=== PATIENT | female | born 1995 | race Caucasian/White ===

== ENCOUNTER 2017-08-11 15:46 | Emergency (ER) | payer OTHER ==
[~2017-08-11] VITALS: Ht 157.4 cm; Wt 96.6 kg
[~2017-08-11 15:46] MED LIST: BACTRIM DS 8001 TA1 PO; CLARITIN10 MG PO; MOTRIN800 MG PO; NO DAILY MEDS; ZITHROMAX Z PA250 MG PO; ZOFRAN ODT4 MG SL; ZOFRAN4 MG PO
[2017-08-11 16:20] LABS: BASO % 0.2 % (0.0-1.0); EOS % 0.5 % (1.0-4.0); HEMATOCRIT 43.9 % (37.0-47.0); HEMOGLOBIN 14.8 g/dl (12.0-16.0); LYMPH # 1.5 10*3/uL (1.3-4.4); LYMPH % 25.9 % (27.0-41.0); MEAN CELL VOLUME 87.5 fl (81.0-99.0); MEAN CORPUSCULAR HGB 29.5 pg (27.0-31.0); MEAN CORPUSCULAR HGB CONC 33.7 g/dl (33.0-37.0); MEAN PLATELET VOLUME 10.4 fl (9.6-12.3); MONO % 0.5 % (3.0-9.0); NEUT # 4.1 10*3/uL (2.3-7.9); NEUT % 72.4 % (47.0-73.0); PLATELET COUNT AUTOMATED 216 10*3/uL (130-400); RED BLOOD COUNT 5.02 10*6/uL (4.10-5.10); RED CELL DISTRI WIDTH 13.5 % (0-14.5); WHITE BLOOD COUNT 5.6 10*3/uL (4.8-10.8)
[2017-08-11 16:37] LABS: ALBUMIN 3.6 gm/dl (3.1-4.5); ALKALINE PHOSPHATASE 120 U/L (45-117); BUN 13 mg/dl (7-24); CHLORIDE 104 mmol/L (98-107); CREATININE 0.86 mg/dL (0.55-1.02); POTASSIUM 3.6 mmol/L (3.5-5.1); SGOT/AST 26 IU/L (3-35); SGPT/ALT 30 U/L (12-78); SODIUM 140 mmol/L (136-145)
[2017-08-11 17:48] VITALS: BP 98/50
[2017-08-11] MEDS ORDERED: ZOFRAN4 MG PO (18:04)
== END 2017-08-11 18:09 | disposition home or self-care (01) ==
LOC: ED 15:46
PROVIDERS: Nurse Practitioner Family
DX: R51 Headache (principal); R03.0 Elevated blood-pressure reading, without diagnosis of hypertension

== ENCOUNTER → 2018-03-05 | Outpatient (CLI) | payer OTHER | END | disposition home or self-care (01) | LOC: ORTHO 01:58 | DX: M25.531 Pain in right wrist (principal) ==

== ENCOUNTER 2018-03-07 11:24 | Emergency (ER) | payer OTHER ==
[~2018-03-07] VITALS: Ht 157.4 cm; Wt 99.8 kg
[2018-03-07 11:30] VITALS: BP 123/66
== END 2018-03-07 12:48 | disposition home or self-care (01) ==
LOC: ED 11:24
DX: M54.9 Dorsalgia, unspecified (principal); Z98.890 Other specified postprocedural states

== ENCOUNTER 2019-02-21 10:41 | Emergency (ER) | payer OTHER ==
[~2019-02-21] VITALS: Ht 157.4 cm; Wt 99.8 kg
[2019-02-21 10:44] VITALS: BP 132/77
[2019-02-21 11:27] LABS: BASO % 0.4 % (0.0-1.0); EOS # 0.1 10*3/uL (0.0-0.4); EOS % 1.3 % (1.0-4.0); HEMATOCRIT 45.6 % (37.0-47.0); HEMOGLOBIN 14.5 g/dl (12.0-16.0); LYMPH # 2.1 10*3/uL (1.3-4.4); LYMPH % 28.4 % (27.0-41.0); MEAN CORPUSCULAR HGB 29.9 pg (27.0-31.0); MEAN CORPUSCULAR HGB CONC 31.8 g/dl (33.0-37.0); MEAN PLATELET VOLUME 10.6 fl (9.6-12.3); MONO # 0.6 10*3/uL (0.1-1.0); MONO % 8.3 % (3.0-9.0); NEUT # 4.6 10*3/uL (2.3-7.9); NEUT % 61.5 % (47.0-73.0); PLATELET COUNT AUTOMATED 267 10*3/uL (130-400); RED BLOOD COUNT 4.85 10*6/uL (4.10-5.10); RED CELL DISTRI WIDTH 12.7 % (0-14.5); WHITE BLOOD COUNT 7.5 10*3/uL (4.8-10.8)
[2019-02-21 11:39] LABS: ALBUMIN 3.3 gm/dl (3.1-4.5); BUN 9 mg/dl (7-24); CHLORIDE 106 mmol/L (98-107); CREATININE 0.81 mg/dL (0.55-1.02); POTASSIUM 4.1 mmol/L (3.5-5.1); SGOT/AST 17 IU/L (3-35); SGPT/ALT 27 U/L (12-78); SODIUM 138 mmol/L (136-145); TOTAL PROTEIN 7.8 gm/dL (6.4-8.2)
[2019-02-21 11:40] LABS: ALKALINE PHOSPHATASE 56 U/L (45-117)
[2019-02-21 11:42] LABS: B-hCG (QUALITATIVE) NEGATIVE (NEGATIVE)
[2019-02-21] MEDS ORDERED: KENALOG 0.025%15 GM T (12:22)
== END 2019-02-21 12:09 | disposition home or self-care (01) ==
LOC: ED 10:41
PROVIDERS: Physician Assistant
DX: B27.90 Infectious mononucleosis, unspecified without complication (principal)

== ENCOUNTER 2021-05-21 19:54 | Emergency (ER) | payer OTHER ==
[~2021-05-21 19:54] MED LIST changes: +KENALOG 0.025%15 GM T
[2021-05-21 20:47] LABS: BASO % 0.3 % (0.0-1.0); EOS # 0.1 10*3/uL (0.0-0.4); EOS % 0.7 % (1.0-4.0); HEMATOCRIT 43.5 % (37.0-47.0); LYMPH % 15.1 % (27.0-41.0); MEAN CELL VOLUME 88.8 fl (81.0-99.0); MEAN CORPUSCULAR HGB CONC 32.6 g/dl (33.0-37.0); MEAN PLATELET VOLUME 10.8 fl (9.6-12.3); MONO # 0.7 10*3/uL (0.1-1.0); MONO % 5.1 % (3.0-9.0); NEUT # 10.5 10*3/uL (2.3-7.9); NEUT % 78.4 % (47.0-73.0); PLATELET COUNT AUTOMATED 300 10*3/uL (130-400); RED CELL DISTRI WIDTH 13.1 % (0-14.5); WHITE BLOOD COUNT 13.3 10*3/uL (4.8-10.8)
[2021-05-21 20:55] LABS: BILIRUBIN Negative (Negative); BLOOD Negative (Negative); CLARITY Cloudy (Clear); COLOR Dark Yellow (Yellow); GLUCOSE Negative (Negative); KETONE Trace (Negative); LEUKO ESTERASE 1+ (Negative); NITRITE Negative (Negative); SPECIFIC GRAVITY 1.025 (1.001-1.030)
[2021-05-21 21:04] LABS: ALBUMIN 3.7 gm/dl (3.1-4.5); ALKALINE PHOSPHATASE 90 U/L (45-117); BUN 7 mg/dl (7-24); CHLORIDE 106 mmol/L (98-107); CREATININE 0.65 mg/dL (0.55-1.02); LIPASE 59 U/L (73-393); POTASSIUM 4.1 mmol/L (3.5-5.1); SGOT/AST 30 IU/L (3-35); SGPT/ALT 37 U/L (12-78); SODIUM 135 mmol/L (136-145); TOTAL PROTEIN 8.2 gm/dL (6.4-8.2)
[2021-05-21 21:06] LABS: B-hCG (QUALITATIVE) NEGATIVE (NEGATIVE)
[2021-05-21 21:12] LABS: BACTERIA 2+; EPITHELIAL CELLS TNTC
[2021-05-21 23:42] VITALS: BP 107/66
== END 2021-05-22 02:10 | disposition home or self-care (01) ==
LOC: ED 19:54
PROVIDERS: Physician Assistant
DX: R11.2 Nausea with vomiting, unspecified (principal); R19.7 Diarrhea, unspecified; R10.9 Unspecified abdominal pain

== ENCOUNTER 2021-07-22 05:54 | Emergency (ER) | payer OTHER ==
[~2021-07-22] VITALS: Ht 160 cm; Wt 83.5 kg
[2021-07-22 06:40] LABS: BASO # 0.1 10*3/uL (0.0-0.1); BASO % 0.4 % (0.0-1.0); EOS # 0.2 10*3/uL (0.0-0.4); EOS % 1.2 % (1.0-4.0); HEMATOCRIT 40.2 % (37.0-47.0); LYMPH % 15.7 % (27.0-41.0); MEAN CELL VOLUME 90.1 fl (81.0-99.0); MEAN CORPUSCULAR HGB 29.4 pg (27.0-31.0); MEAN CORPUSCULAR HGB CONC 32.6 g/dl (33.0-37.0); MEAN PLATELET VOLUME 10.6 fl (9.6-12.3); MONO # 1.1 10*3/uL (0.1-1.0); MONO % 8.8 % (3.0-9.0); NEUT # 9.4 10*3/uL (2.3-7.9); NEUT % 73.6 % (47.0-73.0); PLATELET COUNT AUTOMATED 284 10*3/uL (130-400); RED BLOOD COUNT 4.46 10*6/uL (4.10-5.10); RED CELL DISTRI WIDTH 12.7 % (0-14.5); WHITE BLOOD COUNT 12.8 10*3/uL (4.8-10.8)
[2021-07-22 06:49] LABS: BUN 10 mg/dl (7-24); CHLORIDE 108 mmol/L (98-107); CREATININE 0.55 mg/dL (0.55-1.02); POTASSIUM 3.9 mmol/L (3.5-5.1); SODIUM 134 mmol/L (136-145)
[2021-07-22 09:36] VITALS: BP 118/64
== END 2021-07-22 09:36 | disposition home or self-care (01) ==
LOC: ED 05:54
PROVIDERS: Internal Medicine
DX: B27.90 Infectious mononucleosis, unspecified without complication (principal); Z20.822 Contact with and (suspected) exposure to COVID-19

== ENCOUNTER → 2021-09-15 | Outpatient (CLI) | payer OTHER | END | disposition home or self-care (01) | LOC: COVID19 15:24 | PROVIDERS: ATTEND Internal Medicine | DX: Z11.52 Encounter for screening for COVID-19 (principal) ==

== ENCOUNTER 2022-03-11 12:23 | Emergency (ER) | payer OTHER ==
[~2022-03-11] VITALS: Ht 157.4 cm; Wt 113.9 kg
[2022-03-11 12:35] VITALS: BP 132/62
== END 2022-03-11 14:39 | disposition home or self-care (01) ==
LOC: ED 12:23
DX: O26.893 Other specified pregnancy related conditions, third trimester (principal); M54.50 Low back pain, unspecified; Z3A.28 28 weeks gestation of pregnancy

== ENCOUNTER → 2023-12-19 | Outpatient (CLI) | payer SELFPAY | END | disposition home or self-care (01) | LOC: RAD 16:01 | PROVIDERS: ATTEND Nurse Practitioner Family | DX: T83.32XA Displacement of intrauterine contraceptive device, initial encounter (principal); Y62.9 Failure of sterile precautions during unspecified surgical and medical care ==

== ENCOUNTER → 2025-01-20 | Outpatient (CLI) | payer OTHER | END | disposition home or self-care (01) | LOC: US 16:00 | PROVIDERS: ATTEND Nurse Practitioner Women's Health | DX: N83.292 Other ovarian cyst, left side (principal); N92.6 Irregular menstruation, unspecified ==

== ENCOUNTER → 2025-03-12 | Outpatient (CLI) | payer OTHER | END | disposition home or self-care (01) | LOC: US 14:25 | PROVIDERS: ATTEND Nurse Practitioner Women's Health | DX: N83.202 Unspecified ovarian cyst, left side (principal); R10.2 Pelvic and perineal pain ==

== ENCOUNTER → 2025-06-06 | Outpatient (CLI) | payer OTHER ==
[2025-06-06 13:04] LABS: BASO # 0.0 10*3/uL (0.0-0.1); BASO % 0.2 % (0.0-1.0); EOS # 0.1 10*3/uL (0.0-0.4); EOS % 1.5 % (1.0-4.0); MEAN CELL VOLUME 89.8 fl (81.0-99.0); MEAN CORPUSCULAR HGB 29.9 pg (27.0-31.0); MEAN PLATELET VOLUME 10.8 fl (9.6-12.3); MONO # 0.6 10*3/uL (0.1-1.0); MONO % 7.2 % (3.0-9.0); NEUT # 4.1 10*3/uL (2.3-7.9); NEUT % 49.8 % (47.0-73.0); NUCLEATED RED BLOOD CELL 0.0 % (0.0-0.0); NUCLEATED RED BLOOD CELL 0.0 10*3/uL (0.0-0.0); PLATELET COUNT AUTOMATED 270 10*3/uL (130-400); RED CELL DISTRI WIDTH 12.4 % (0-14.5); RETICULOCYTE % 1.40 % (0.50-2.50)
[2025-06-06 13:13] LABS: BILIRUBIN Negative (Negative); BLOOD 3+ (Negative); CLARITY Cloudy (Clear); COLOR Yellow (Yellow); KETONE Negative (Negative); LEUKO ESTERASE 2+ (Negative); NITRITE Negative (Negative); PH 5.5 (4.5-8.0); SPECIFIC GRAVITY 1.020 (1.001-1.030); UROBILINOGEN 0.2 E.U./dl (0.0-1.0)
[2025-06-06 13:39] LABS: BUN 11 mg/dl (9-23); GAMMA GLUTAMYL TRANSFERASE 38 U/L (0-38); LDL CHOLESTEROL 71 mg/dL (9-159); SGPT/ALT 32 U/L (5-49); T3 UPTAKE 28.8 % (22.4-36.7); THYROXINE (T4) TOTAL 8.6 ug/dl (4.5-10.9); VITAMIN D, 25-HYDROXY 41.3 ng/mL (30-100)
[2025-06-06 13:57] LABS: BACTERIA 3+; MUCOUS 2+; RBC 41-50 rbc/hpf (0-2); WBC 41-50 wbc/hpf (0-5)
== END ==
LOC: LAB 12:39
PROVIDERS: ATTEND Family Medicine
DX: E55.9 Vitamin D deficiency, unspecified (principal); R79.89 Other specified abnormal findings of blood chemistry; R53.83 Other fatigue

== ENCOUNTER → 2025-08-01 | Outpatient (CLI) | payer OTHER ==
[2025-08-01 12:46] LABS: BASO # 0.0 10*3/uL (0.0-0.1); BASO % 0.3 % (0.0-1.0); EOS # 0.1 10*3/uL (0.0-0.4); EOS % 1.0 % (1.0-4.0); MEAN CELL VOLUME 89.1 fl (81.0-99.0); MEAN CORPUSCULAR HGB 30.0 pg (27.0-31.0); MEAN PLATELET VOLUME 11.0 fl (9.6-12.3); MONO # 0.7 10*3/uL (0.1-1.0); MONO % 7.1 % (3.0-9.0); NEUT # 5.5 10*3/uL (2.3-7.9); NEUT % 57.4 % (47.0-73.0); NUCLEATED RED BLOOD CELL 0.0 % (0.0-0.0); NUCLEATED RED BLOOD CELL 0.0 10*3/uL (0.0-0.0); PLATELET COUNT AUTOMATED 256 10*3/uL (130-400); RED CELL DISTRI WIDTH 12.5 % (0-14.5); RETICULOCYTE % 1.28 % (0.50-2.50)
[2025-08-01 12:48] LABS: BILIRUBIN Negative (Negative); BLOOD Negative (Negative); CLARITY Clear (Clear); COLOR Yellow (Yellow); KETONE Negative (Negative); LEUKO ESTERASE 1+ (Negative); NITRITE Negative (Negative); PH 7.0 (4.5-8.0); SPECIFIC GRAVITY 1.010 (1.001-1.030); UROBILINOGEN 0.2 E.U./dl (0.0-1.0)
[2025-08-01 13:10] LABS: BETA-HCG, QUANT 50.0 mIU/mL (3-10); BUN 8 mg/dl (9-23); GAMMA GLUTAMYL TRANSFERASE 36 U/L (0-38); LDL CHOLESTEROL 54 mg/dL (9-159); SGPT/ALT 29 U/L (5-49)
[2025-08-01 13:11] LABS: BACTERIA TRACE
[2025-08-01 14:48] LABS: B-hCG (QUALITATIVE) POSITIVE (NEGATIVE)
== END | disposition home or self-care (01) ==
LOC: LAB 11:35
PROVIDERS: ATTEND Family Medicine
DX: R79.89 Other specified abnormal findings of blood chemistry (principal); E78.5 Hyperlipidemia, unspecified; N92.6 Irregular menstruation, unspecified; R53.83 Other fatigue